=== PATIENT | female | born 2005 | race Caucasian/White ===

== ENCOUNTER 2025-07-04 20:57 | Emergency (ER) | payer OTHER ==
[~2025-07-04] VITALS: Ht 167.6 cm; Wt 59.0 kg
[2025-07-04 21:02] VITALS: TEMP 98
[2025-07-04] MEDS ORDERED: NORG75TA PO (21:06)
[2025-07-04 21:35] LABS: BASO # 0.1 10^3/uL (0.0-0.2); BASO % 0.6 % (0.0-1.0); EOS # 0.2 10^3/uL (0.0-0.5); EOS % 2.0 % (0.0-3.0); LYMPH # 2.8 10^3/uL (1.5-5.0); LYMPH % 32.0 % (24.0-44.0); MONO # 0.6 10^3/uL (0.0-0.8); MONO % 6.2 % (2.0-8.0); NEUTROPHILS # 5.2 10^3/uL (1.5-8.5); NEUTROPHILS % 59.1 % (36.0-66.0); PLATELET COUNT, AUTOMATED 347 10^3/uL (150-450)
[2025-07-04 21:53] LABS: KETONE, URINE AUTO RFX NEGATIVE (NEGATIVE); LEUKOCYTE ESTERASE UR AUTO RFX TRACE (NEGATIVE); MUCUS, URINE RFX SMALL (NEGATIVE); NITRITE, URINE AUTO RFX NEGATIVE (NEGATIVE); RBC, URINE AUTO RFX 0 /HPF (0-3); SQUAM EPITHELIAL CELL UR AURFX 5 /HPF (0-6); WBC, URINE AUTO RFX 8 /HPF (0-3)
[2025-07-04 22:05] LABS: ALT/SGPT 16.0 U/L (7.0-40); AST/SGOT 19.0 U/L (<34); CALCIUM LEVEL 9.4 MG/DL (8.5-10.1); CARBON DIOXIDE LEVEL 26.0 MMOL/L (20-31); CHLORIDE LEVEL 106.0 MMOL/L (98-107); CREATININE FOR GFR 0.95 MG/DL (0.55-1.30); GLOMERULAR FILTRATION RATE 88.0 (>60); POTASSIUM SERUM 3.5 MMOL/L (3.5-5.1); SODIUM LEVEL 143.0 MMOL/L (136-145)
[2025-07-04] MEDS ORDERED: ISOVUE-370 76% 100 ML VIAL As Ordered ONE (23:28)
[2025-07-05 00:03] LABS: HCG, SERUM QUALITATIVE NEGATIVE (NEGATIVE)
[2025-07-05 01:52] VITALS: BP 102/60; O2SAT 96
[2025-07-06] MEDS ORDERED: NITR100C3 PO (10:10)
== END 2025-07-05 01:54 | disposition home or self-care (01) ==
LOC: M ED 20:57
DX: K59.00 Constipation, unspecified (principal); R10.9 Unspecified abdominal pain; Z88.1 Allergy status to other antibiotic agents; Z79.899 Other long term (current) drug therapy
CPT/HCPCS: 36415; 74177; 80048; 80076; 81001; 82150; 83690; 84703; 85025; 87088; 87186; 99284; Q9967